=== PATIENT | female | born 1960 | race Caucasian/White ===

== ENCOUNTER → 2016-11-19 | Outpatient (CLI) | payer BC, OTHER ==
[~2016-11-19] MED LIST: CHLORDIAZEPOXID25 M1 PO; COZAAR 25 MG TA25 M1 PO; GLIPIZIDE 10 MG10 MG PO; HTN MED; LEXAPRO 10 MG T10 M2 PO; LOPRESSOR50 PO; PRILOSEC 20 MG20 MG PO
[2016-11-19 12:20] LABS: ABSOLUTE NEUTROPHILS 3.3 thou/uL (1.4-8.2); BASOPHILS 0.5 % (0.0-2.0); HEMATOCRIT 38.2 % (37.0-47.0); HEMOGLOBIN 13.1 gm/dL (12.0-15.0); LYMPHOCYTES 43.4 % (24.0-44.0); MCH 27.7 pg (26.0-34.0); MCHC 34.2 g/dL (28.0-37.0); MCV 80.9 fL (80.0-100.0); MONOCYTES 5.5 % (1.0-8.0); PLATELET COUNT 271 thou/uL (150-400); POLYS 48.6 % (36.0-66.0); RBC 4.72 mil/uL (4.20-5.00); RDW 14.6 % (10.5-14.5); WBC 6.9 thou/uL (4.0-11.0)
[2016-11-19 12:22] LABS: MANUAL DIFF NO
[2016-11-19 12:27] LABS: ANION GAP 5 mmol/L (7-16); BUN 10 mg/dL (7-18); CALCIUM 9.1 mg/dL (8.5-10.1); CHLORIDE 103 mmol/L (98-107); CO2 32 mmol/L (21-32); CREATININE 0.7 mg/dL (0.6-1.0); GLUCOSE 106 mg/dL (74-106); POTASSIUM 4.7 mmol/L (3.5-5.1); SODIUM 140 mmol/L (136-145)
[2016-11-19 12:32] LABS: ALBUMIN 3.8 g/dL (3.4-5.0); ALKALINE PHOSPHATASE 101 U/L (46-116); DIRECT BILIRUBIN < 0.1 mg/dL (<0.1-0.3); SGOT 16 U/L (15-37); SGPT 6 U/L (30-65); TOTAL BILIRUBIN 0.2 mg/dL (<0.1-1.0); TOTAL PROTEIN 7.6 g/dL (6.4-8.2)
== END ==
LOC: LABMALL 11:29
PROVIDERS: Specialist
DX: L40.0 Psoriasis vulgaris (principal); Z79.899 Other long term (current) drug therapy